=== PATIENT | female | born 1960 | race Caucasian/White ===

== ENCOUNTER 2024-09-29 22:25 | Emergency (ER) | payer OTHER ==
[~2024-09-29] VITALS: Ht 167.6 cm; Wt 83.0 kg
[2024-09-29 22:42] VITALS: O2SAT 98
[2024-09-29 23:22] LABS: BASOPHILS % 1.2 % (0.0-2.0); EOSINOPHILS % 0.6 % (0.0-5.0); LYMPHOCYTES % 27.4 % (20.0-50.0); MEAN CORPUSCULAR HEMOGLOBIN 29.7 pg (28.0-32.0); MEAN CORPUSCULAR HGB CONC 33.4 g/dL (31.0-37.0); MEAN CORPUSCULAR VOLUME 88.9 fL (81.0-99.0); MEAN PLATELET VOLUME 9.8 fl (7.4-10.4); MONOCYTES % 7.9 % (2.0-8.0); NEUTROPHILS % 62.9 % (40.0-76.0); PLATELET 288 x1000/uL (130-400); RED BLOOD CELL COUNT 4.39 mill/uL (4.2-5.4); RED CELL DISTRIBUTION WIDTH 13.8 % (11.6-14.6)
[2024-09-29 23:36] LABS: CHLORIDE 104 mEq/L (98-107); POTASSIUM 4.1 mEq/L (3.5-5.1); SODIUM 142 mEq/L (136-145)
[2024-09-29] MEDS: ASPIRIN 81MG TABLET PO ONE (23:36)
[2024-09-29] MEDS: METOPROLOL TARTRATE 5MG/5ML VIAL IV ONE (23:36)
[2024-09-29 23:37] LABS: CALCIUM 9.4 mg/dL (8.7-10.4); CARBON DIOXIDE 24 mEq/L (21-32)
[2024-09-29 23:42] LABS: GLUCOSE 163 mg/dL (70-105); UREA NITROGEN BLOOD 19 mg/dL (9-23)
[2024-09-29 23:43] LABS: TROPONIN I HIGH SENSITIVITY 5 ng/L (3.0-34)
[2024-09-30 01:27] LABS: TROPONIN I HIGH SENSITIVITY 6 ng/L (3.0-34)
[2024-09-30 03:18] VITALS: BP 137/77; PULSE 110; RESP 20; TEMP 36.6; O2SAT 98
== END 2024-09-30 03:41 | disposition short-term general hospital (02) ==
LOC: ER 22:25 → EDBEDREQTM 23:32 → EDBEDREQDT 09-30 02:02 → EDBEDREQ 09-30 02:02 → EDBEDREQTM 09-30 02:02 → ER 09-30 03:41
DX: I48.91 Unspecified atrial fibrillation (principal); Z79.899 Other long term (current) drug therapy; Z98.890 Other specified postprocedural states
CPT/HCPCS: 80048; 83880; 85025; 84484 ×2; 36415 ×2; 71045; 93005; 96374; 99285; Z7610; J3490